=== PATIENT | female | born 1995 | race Native Hawaiian/Other Pacific Islander ===

== ENCOUNTER 2017-12-01 22:34 | Emergency (ER) | payer BC, OTHER ==
[2017-12-01] MEDS ORDERED: Sodium Chloride 0.9% 1,000 ML IV STA (22:48)
[2017-12-01 22:50] VITALS: BP 130/88; PULSE 81; RESP 18; TEMP 98.7
--- NOTE | 2017-12-01 23:21 | ED PDOC ---
Arrival/HPI - General Chief Complaint: Palpitations Time Seen by Provider: 12/01/17 22:47 Historian: Patient - History of Present Illness Narrative History of Present Illness (Text): 12/01/17 23:16 22 year old female, with no significant past medical history, presents to the emergency department with feelings of palpitations and dizziness, for 1 week. Patient states she feels her heart is beating fast. Patient also informs of associated dizziness. Patient states her symptoms come and go, and mostly occur while she's at work. Patient informs she went to her PMD for this earlier in the week, and received an EKG and blood work, no results received. Patient denies any fever, chills, headache, chest pain, cough, abdominal pain, nausea, vomiting, diarrhea, back pain, neck pain, urinary/bowel changes, or any other complaint. Time/Duration: Prior to Arrival, 1 week Symptom Onset: Gradual Past Medical History - Provider Review Nursing Documentation Reviewed: Yes - Psychiatric Hx Substance Use: No Family/Social History - Physician Review Nursing Documentation Reviewed: Yes Family/Social History: No Known Family HX Smoking Status: Never Smoked Hx Alcohol Use: No Hx Substance Use: No Allergies/Home Meds Allergies/Adverse Reactions: Allergies No Known Allergies Allergy (Verified 12/01/17 22:44) Review of Systems - Physician Review All systems were reviewed & negative as marked: Yes - Review of Systems Constitutional: Normal. absent: Fevers, Night Sweats Eyes: Normal ENT: Normal Respiratory: Normal Cardiovascular: Normal. absent: Chest Pain Gastrointestinal: Normal. absent: Abdominal Pain, Diarrhea, Nausea, Vomiting Genitourinary Female: Normal. absent: Urine Output Changes Musculoskeletal: Normal. absent: Back Pain, Neck Pain Skin: Normal Neurological: Normal. absent: Headache Endocrine: Normal Hemo/Lymphatic: Normal Psychiatric: Normal Physical Exam Vital Signs Reviewed: Yes Vital Signs Temp Pulse Resp BP Pulse Ox 12/02/17 01:14 99 12/01/17 22:44 98.7 F 81 18 130/88 100 Temperature: Afebrile Blood Pressure: Normal Pulse: Regular Respiratory Rate: Normal Appearance: Positive for: Well-Appearing, Non-Toxic, Comfortable Pain Distress: None Mental Status: Positive for: Alert and Oriented X 3 - Systems Exam Head: Present: Atraumatic, Normocephalic Pupils: Present: PERRL Extroacular Muscles: Present: EOMI Conjunctiva: Present: Normal Mouth: Present: Moist Mucous Membranes Neck: Present: Normal Range of Motion Respiratory/Chest: Present: Clear to Auscultation, Good Air Exchange. No: Respiratory Distress, Accessory Muscle Use Cardiovascular: Present: Regular Rate and Rhythm, Normal S1, S2. No: Murmurs Abdomen: No: Tenderness, Distention, Peritoneal Signs Back: Present: Normal Inspection Upper Extremity: Present: Normal Inspection. No: Cyanosis, Edema Lower Extremity: Present: Normal Inspection. No: Edema Neurological: Present: GCS=15, CN II-XII Intact, Speech Normal Skin: Present: Warm, Dry, Normal Color. No: Rashes Psychiatric: Present: Alert, Oriented x 3, Normal Insight, Normal Concentration Medical Decision Making ED Course and Treatment: 12/01/17 23:24 Impression: 22 year old female presents with feelings of heart palpitations and dizziness. Plan: -- CT Head -- EKG -- Labs -- Chest X-ray -- Antivert -- Reassess and disposition Prior Visits: Notes and results from previous visits were reviewed. Progress Notes: 12/01/17 23:26 EKG reviewed, shows: Normal sinus rhythm @82bpm - Lab Interpretations Lab Results: 12/01/17 23:14 12/01/17 23:14 Lab Results 12/01/17 23:14: TSH 3rd Generation 1.56 12/01/17 23:14: Sodium 139, Potassium 3.8, Chloride 105, Carbon Dioxide 24, Anion Gap 13, BUN 12, Creatinine 0.7, Est GFR ( Amer) > 60, Est GFR (Non- Af Amer) > 60, Random Glucose 116 H, Calcium 9.1, Magnesium 1.7, Total Bilirubin 0.4, AST 23, ALT 20, Alkaline Phosphatase 63, Lactate Dehydrogenase 462, Total Creatine Kinase 56, Troponin I < 0.01, Total Protein 7.5, Albumin 3.8 , Globulin 3.7, Albumin/Globulin Ratio 1.0 L 12/01/17 23:14: WBC 7.2, RBC 4.33, Hgb 12.4, Hct 37.0, MCV 85.5, MCH 28.6, MCHC 33.5, RDW 12.9, Plt Count 293, MPV 9.0, Gran % 71.4 H, Lymph % (Auto) 18.0 L, Hawkins % (Auto) 6.0, Eos % (Auto) 4.2, Baso % (Auto) 0.4, Gran # 5.11, Lymph # ( Auto) 1.3, Hawkins # (Auto) 0.4, Eos # (Auto) 0.3, Baso # (Auto) 0.03 - RAD Interpretation Radiology Orders: 12/01/17 22:48 CHEST ONE VIEW [RAD] Stat 12/01/17 23:18 HEAD W/O CONTRAST [CT] Stat - Medication Orders Current Medication Orders: Discontinued Medications Sodium Chloride (Sodium Chloride 0.9%) 1,000 mls @ 999 mls/hr IV .Q1H1M STA Stop: 12/01/17 23:48 Last Admin: 12/01/17 23:20 Dose: 999 mls/hr eMAR Start Stop Document 12/01/17 23:20 SS (Rec: 12/01/17 23:20 SS [id number]) Intravenous Solution Start Date 12/01/17 Start Time 23:20 End Date 12/02/17 End time 00:20 Total Infusion Time 60 Meclizine HCl (Antivert) 25 mg PO STAT STA Stop: 12/01/17 22:49 Last Admin: 12/01/17 23:13 Dose: 25 mg - Scribe Statement The provider has reviewed the documentation as recorded by the Ioana Gonzales Provider Scribe Attestation: All medical record entries made by the Scribe were at my direction and personally dictated by me. I have reviewed the chart and agree that the record accurately reflects my personal performance of the history, physical exam, medical decision making, and the department course for this patient. I have also personally directed, reviewed, and agree with the discharge instructions and disposition. Disposition/Present on Arrival - Present on Arrival Any Indicators Present on Arrival: No History of DVT/PE: No History of Uncontrolled Diabetes: No Urinary Catheter: No History of Decub. Ulcer: No History Surgical Site Infection Following: None - Disposition Have Diagnosis and Disposition been Completed?: Yes Diagnosis: Vertigo, Palpitations Disposition: HOME/ ROUTINE Disposition Time: 00:40 Condition: GOOD Discharge Instructions (ExitCare): Vertigo (a Type of Dizziness) (DC), Palpitations (DC) Additional Instructions: JOSEPHINE GARCIA, thank you for letting us take care of you today. Your provider was Johnny Hurd DO and you were treated for PALPITATIONS. The emergency medical care you received today was directed at your acute symptoms. If you were prescribed any medication, please fill it and take as directed. It may take several days for your symptoms to resolve. Return to the Emergency Department if your symptoms worsen, do not improve, or if you have any other problems. Please contact your doctor or call one of the physicians/clinics you have been referred to that are listed on the Patient Visit Information form that is included in your discharge packet. Bring any paperwork you were given at discharge with you along with any medications you are taking to your follow up visit. Our treatment cannot replace ongoing medical care by a primary care provider outside of the emergency department. Thank you for allowing the [email or web address] team to be part of your care today. Follow up with your primary care doctor in 1-2 days for re-evaluation and further management. Prescriptions: Meclizine [Meclizine*] 25 mg PO Q6 PRN #20 tab PRN Reason: Dizziness Referrals: [facility], [Non-Staff] - Follow up with primary Forms: [facility] (Green[place]ic), WORK NOTE
[2017-12-01 23:24] LABS: BASO # 0.03 K/mm3 (0.0-2.0); BASO % 0.4 % (0.0-3.0); EOS # 0.3 (0.0-0.7); EOS % 4.2 % (1.5-5.0); GRAN # 5.11 (1.4-6.5); GRAN % 71.4 % (50.0-68.0); HEMOGLOBIN 12.4 g/dL (12.0-16.0); LYMPH # 1.3 (1.2-3.4); MEAN CELL VOLUME 85.5 fl (80.0-105.0); MEAN CORPUSCULAR HEMOGLOBIN 28.6 pg (25.0-35.0); MEAN CORPUSCULAR HGB CONC 33.5 g/dl (31.0-37.0); MONO # 0.4 (0.1-0.6); RBC 4.33 10^6/uL (3.5-6.1); RED CELL DISTRIBUTION WIDTH 12.9 % (11.5-14.5); WHITE BLOOD COUNT 7.2 10^3/ul (4.5-11.0)
[2017-12-01 23:30] LABS: ALBUMIN 3.8 g/dL (3.0-4.8); ALT/SGPT 20 U/L (7-56); AST/SGOT 23 U/L (14-36); BLOOD UREA NITROGEN 12 mg/dL (7-21); CALCIUM 9.1 mg/dL (8.4-10.5); GFR NON-AFRICAN AMERICAN > 60
[2017-12-01 23:42] LABS: TROPONIN I < 0.01 ng/mL
--- NOTE | 2017-12-02 00:31 | CT ---
EXAM: CT Head Without Intravenous Contrast EXAM DATE/TIME: 12/01/2017 11:18 PM CLINICAL HISTORY: 22 years old, female; Signs and symptoms; Dizziness and other: R/O ich TECHNIQUE: Axial computed tomography images of the head/brain without intravenous contrast. All CT scans at this facility use at least one of these dose optimization techniques: automated exposure control; mA and/or kV adjustment per patient size (includes targeted exams where dose is matched to clinical indication); or iterative reconstruction. Coronal and sagittal reformatted images were created and reviewed. COMPARISON: There are no prior studies for comparison. FINDINGS: Brain and Ventricles: Ventricles are normal in size and configuration. There is no midline shift. There are no intra-axial or extra-axial mass lesions or areas of hemorrhage. There are no abnormal fluid collections. Ortiz-white differentiation is maintained. Ventricles: See above. Bones: Cranial vault is intact. Soft tissues: unremarkable Sinuses: There is no acute sinusitis. There is minimal mucoperiosteal thickening in ethmoid air cells Ears and Mastoids: Middle ears and mastoids are unremarkable Orbits: Orbital contents are unremarkable. IMPRESSION: No acute intracranial abnormality, no bleed
[2017-12-02 01:40] VITALS: O2SAT 99
--- NOTE | 2017-12-02 11:49 | RAD ---
Date of service: 12/01/2017 PROCEDURE: CHEST RADIOGRAPH, 1 VIEW HISTORY: r/o infiltrate COMPARISON: 09/18/2016 FINDINGS: LUNGS: Clear. PLEURA: No pneumothorax or pleural fluid seen. CARDIOVASCULAR: No radiographic findings to suggest acute or significant cardiovascular disease. OSSEOUS STRUCTURES: No significant abnormalities. VISUALIZED UPPER ABDOMEN: Normal. OTHER FINDINGS: None. IMPRESSION: No active disease.No significant interval change compared to the prior examination(s).
--- NOTE | 2017-12-02 14:01 | CARD ---
APPROVED REPORT Date of service: 12/01/2017 EKG Measurement Heart [id number] <Conclusion> Normal sinus rhythm Normal ECG
== END 2017-12-02 01:39 | disposition home or self-care (01) ==
LOC: ED 22:34
DX: R00.2 Palpitations (principal); R42 Dizziness and giddiness
CPT/HCPCS: 70450; 71045; 80053; 82550; 83615; 83735; 84443; 84484; 85025; 93005; 96360; 99283; J7030